=== PATIENT | female | born 1995 | race Two or more races ===

== ENCOUNTER 2025-04-06 20:20 | Emergency (ER) | payer MEDICAID, OTHER ==
[~2025-04-06] VITALS: Ht 162.6 cm; Wt 84.9 kg
[2025-04-06 20:26] VITALS: BP 125/79; PULSE 100; RESP 16; TEMP 98.8; O2SAT 98
[2025-04-06 22:32] LABS: Hematocrit 41.5 % (36.0-46.0); Hemoglobin 13.8 g/dL (12.2-16.2); Mean Corpuscular Hemoglobin 28.7 pg (28.0-32.0); Mean Corpuscular Volume 86.4 fL (80.0-100.0); Nucleated Red Blood Cells % 0.1 %
[2025-04-06 22:47] LABS: Alanine Aminotransferase 43 U/L (7-40); Albumin 4.5 g/dL (3.2-4.8); Alkaline Phosphatase 62 U/L (46-116); Anion Gap 8 (5-15); BUN/Creatinine Ratio 8.9 (10.0-20.0); Bilirubin, Total 0.3 mg/dL (0.2-1.0); Blood Urea Nitrogen 8 mg/dL (9-23); Calcium 9.8 mg/dL (8.7-10.4); Carbon Dioxide 27 mmol/L (20-31); Chloride 103 mmol/L (98-107); Glucose 100 mg/dL (74-106); Potassium 4.2 mmol/L (3.5-5.1); Sodium 138 mmol/L (136-145); Total Protein 7.9 g/dL (5.7-8.2)
--- NOTE | 2025-04-06 23:18 | ED.PDOC ---
DIALYSIS RN HPI Comments HPI: This is a 30 year-old female who presents to the ED with a chief complaint of vaginal spotting and minimal cramping as of today. Patient reports she found out she was yesterday with an at home test. Patient reports , current gestation period unspecified, LMP on 03/14/25. Patient has no further complaints at this time and otherwise denies dysuria, N/V/D, abdominal pain, abdominal distention, fever, or chills. Initial Vitals (Deferred) BP: HR: RR: O2: Temp: Past Medical History: None Past Surgical History: None Social History: Denies ETOH, smoking, and drug use. Medications: None Allergies: None HPI: Poor Historian. REVIEW OF SYSTEMS: CONSTITUTIONAL: Denies acute: fever, diaphoresis, chills, generalized weakness. HEAD: Denies acute: headache, photophobia Eyes: Denies acute: Double vision, vision loss, eye pain, eye discharge. EARS: Denies acute: tinnitus, hearing loss, ear discharge, ear pain, THROAT: Denies acute: sore throat, swelling, difficulty swallowing , pain with swallowing, change in voice. NECK: Denies acute: neck pain, neck swelling, stiff neck. HEART: Denies acute : chest pain, palpitations, LUNGS: Denies acute: SOB, wheezing, cough, hemoptysis ABDOMEN: Denies acute: abdominal pain, Nausea, Vomiting, diarrhea, melena , hematemesis, hematochezia SKIN: Denies acute: rash, redness, lesions, itchiness. EXTREMITIES: Denies acute: calf pain, numbness, tingling, weakness, denies pain in extremity. Denies acute: Low back pain. Neuro: Denies acute: focal neurological deficit, motor or sensory focal neurological deficit, tremors, seizure like activity, confusion, dizziness, change in mental status, loss of bowel or bladder function, cauda equina like symptoms. : Denies acute: hematuria, flank pain, increase in urinary frequency. PSYCH: Denies acute: hallucination, suicidal ideation, homicidal ideation. FEMALE: Denies acute: foul odor, unusual discharge. PHYSICAL EXAM: General: ----no----acute distress, awake and alert. Head: normocephalic, atraumatic. Neck: supple, trachea is midline, no swelling. Throat: Normal phonation. Eyes:, no erythema, no purulent discharge, no proptosis, no icterus. Heart: regular rate, regular rhythm, no significant murmur appreciated. Lungs: no apparent respiratory distress, Able to speak in full sentences. No wheezing, no rhonchi, no crackles. No stridors Clear to auscultation bilaterally. Abdomen: non tender to palpation, non distended, soft, no guarding, no rebound, + bowel sounds. Neuro: Awake, Alert, oriented to name, self, situation, follows commands GCS=15. Speech is normal. Skin: no petechia, no purpura, no cyanosis, non-pale, not jaundice. Lower extremities: --no - Pitting edema no deformity, no focal swelling, no calf TTP. Makes eye contact. moves all four extremities. Face: no apparent facial droop. Ambulating in the ED independently. ED COURSE: On April 14, 2025 at 12:55 p.m. hour: I was able to reach the patient on her phone number [phone]. 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 She said that they were able to see a sac. Please seek medical attention if anything changes. DISCLAIMER: This medical document was created using an electronic medical record system with voice recognition software and computerized dictation system. Although this document has been carefully reviewed, there might still be some phonetic and typographical errors. Occasional wrong-word or "sound-alike" substitutions may have occurred due to the inherent limitations of voice recognition software. These areas are purely typographical due to imperfections of the software programs and do not reflect any compromise in the patient's medical care. Please read the chart carefully and recognize, using context, where these substitutions have occurred. Chief Complaint: Vaginal Bleed Time Seen by MD: 23:06 Reviewed Notes: Medications, Allergies Allergies: Coded Allergies: UNOBTAINABLE (Unverified , 04/07/25) Home Meds Active Scripts Cephalexin Monohydrate (Cephalexin) 500 Mg Cap, 500 MG PO TID for 5 Days, #15 TAB Prov:ORA ALVAREZ DO 04/07/25 Information Source: Patient Mode of Arrival: Ambulatory Timing: Hours Severity: Moderate Onset Of Mass/Bleeding: Spontaneous History of: Current Associated Signs and Symptoms: Vaginal Bleeding, Cramping Past Medical History PAST MEDICAL HISTORY: Denies Surgical History: Denies all surgeries BEAD WIRE TAPER History: No Pertinent BEAD WIRE TAPER History 2 Para 1 Social History Smoker: Non-Smoker Alcohol: Denies ETOH Use Drugs: Denies Drug Use Lives In: Home Was a procedure done? Was a procedure done?: No Differential Diagnosis (BEAD WIRE TAPER) Vaginal Bleeding: - Complete, - Incomplete, - Inevitable, - Missed, - Threatened, Abruptio Placentae, Blood Loss Anemia, Cervicitis, Dysmenorrhea, Ectopic , Hormonal, Menorrhagia, Menometrorrhagia, Menstrual Bleeding, Myomatous Uterus, PID, Placenta Previa, Precipitous Hct, Trauma, UTI, Vaginitis, Other (Differential diagnosis includes but not limited to DU B, menorrhea, metromenorrhagia, neoplasm, coagulopathy,, trauma, miscarriage, placenta previa, placental abruption, ) Vaginal Discharge: , Vaginitis - Bacterial X-Ray, Labs, Meds, VS Vital Signs Date Time Temp Pulse Resp B/P (MAP) Pulse Ox O2 Delivery O2 Flow Rate FiO2 04/06/25 20:26 98.8 100 16 125/79 98 98.8 Lab Test 04/06/25 23:09 04/06/25 22:22 Range/Units Urine Color Colorless Yellow Urine Clarity Turbid H Clear Urine pH 6.0 5.0-9.0 Urine Specific [place] 1.022 1.001-1.035 Urine Protein Negative Negative Urine Ketones Negative Negative Urine Blood 3+ H Negative /uL Urine Nitrite Negative Negative Urine Bilirubin Negative Negative Urine Urobilinogen Normal Negative mg/dL Urine Leukocyte Esterase 3+ Negative /uL Urine RBC 64 0 - 4 /hpf Urine Microscopic WBC 215 H 0-5 /HPF Urine Squamous Epithelial Cells Few <5 /hpf Urine Bacteria Mod H None Seen /hpf Urine Mucus Few None Seen Urine Glucose Normal Normal mg/dL White Blood Count 12.5 H 4.4-10.8 10^3/uL Red Blood Count 4.80 4.0-5.20 10^6/uL Hemoglobin 13.8 12.2-16.2 g/dL Hematocrit 41.5 36.0-46.0 % Mean Corpuscular Volume 86.4 80.0-100.0 fL Mean Corpuscular Hemoglobin 28.7 28.0-32.0 pg Mean Corpuscular Hemoglobin Concent 33.2 32.0-36.0 g/dL Red Cell Distribution Width 12.9 11.8-14.3 % Platelet Count 371 140-450 10^3/uL Mean Platelet Volume 7.1 6.9-10.8 fL Neutrophils (%) (Auto) 67.1 37.0-80.0 % Lymphocytes (%) (Auto) 22.1 10.0-50.0 % Monocytes (%) (Auto) 9.1 0.0-12.0 % Eosinophils (%) (Auto) 0.9 0.0-7.0 % Basophils (%) (Auto) 0.8 0.0-2.0 % Neutrophils # (Auto) 8.4 1.6-8.6 10 ^3/uL Lymphocytes # (Auto) 2.8 0.4-5.4 10 ^3/uL Monocytes # (Auto) 1.1 0-1.3 10 ^3/uL Eosinophils # (Auto) 0.1 0-0.8 10 ^3/uL Basophils # (Auto) 0.1 0-0.2 10 ^3/uL Nucleated Red Blood Cells 0.1 % Sodium Level 138 136-145 mmol/L Potassium Level 4.2 3.5-5.1 mmol/L Chloride Level 103 98-107 mmol/L Carbon Dioxide Level 27 20-31 mmol/L Anion Gap 8 5-15 Blood Urea Nitrogen 8 L 9-23 mg/dL Creatinine 0.90 0.550-1.02 mg/dL Glomerular Filtration Rate Calc 87 >90 mL/min BUN/Creatinine Ratio 8.9 L 10.0-20.0 Serum Glucose 100 74-106 mg/dL Calcium Level 9.8 8.7-10.4 mg/dL Total Bilirubin 0.3 0.2-1.0 mg/dL Aspartate Amino Transferase (AST) 27 13-40 U/L Alanine Aminotransferase (ALT) 43 H 7-40 U/L Alkaline Phosphatase 62 46-116 U/L Total Protein 7.9 5.7-8.2 g/dL Albumin 4.5 3.2-4.8 g/dL Beta HCG, Quantitative 439.4 H 1.5-4.2 mIU/mL [facility] [id number] [facility] [address] Ph: [phone] DIAGNOSTIC IMAGING Diagnostic Imaging Report : [id number] Signed PATIENT: RAMON PARRA AACCT: [id number] UNIT: [id number] : 1995 LOC: ER ROOM / BED: / AGE / SEX: 30 / F ADM STATUS: REG ER SERVICE 13 ORDERING PHYSICIAN: ORA ALVAREZ DO PROCEDURE(s): OB4US - OB ULTRASOUND COMP LESS 14WKS REASON: vag bleed ORDER NUMBER(s): [id number], ACCESSION NUMBER(s): [id number] INDICATION: vag bleed TECHNIQUE: Multiple real-time grayscale transabdominal and transvaginal sonographic images along with color and duplex Doppler of the uterus and ovaries were obtained. COMPARISON: None FINDINGS: The uterus measures 7.4 x 5.3 x 3.1 cm. Myometrium is homogeneous. No intrauterine gestational sac or cavitary fluid. The endometrial stripe measures 14 mm. Nabothian cysts are present. Right ovary measures 4.7 x 2.1 x 5 cm with normal Doppler color flow. A complex thick-walled, septated mass with a small amount of low-level internal echoes is present measuring 2.3 x 1.5 x 1.9 cm. Left ovary measures 2.5 x 1.9 x 2.6 cm with normal Doppler color flow. Physiologic follicle. No visualized ascites. IMPRESSION: 1. No intrauterine gestational sac. 2. Complex right ovarian cyst concerning for ectopic , although without definitive features of gestational sac. Recommend gynecologic consultation, trending of quantitative hCG values, and follow-up ultrasound if necessary. 3. Moderate to large volume of mildly complex pelvic pelvic free fluid, also suspicious. I communicated the above findings by telephone with Dr. Alvarez at 12:25 a.m. [facility] on 04/07/2025, who demonstrated understanding. 0319: I attempted to contact the patient via home phone #[phone]. Patient did not answer and voice mailbox was full. I was unable to leave a message. Nursing staff called the patient multiple times, unable to find the patient in the lobby, triage area, or treatment. Images Reviewed?: Images reviewed and evaluated by me Time of 1ST Reevaluation: 23:40 Reevaluation 1ST: Unchanged Time of 2ND Reevaluation: 00:52 (The case was discussed with the OB Gyne team on-call team (HPI, physical exam, labs and diagnostic tests that were available at the time of disposition, ED course, treatment plan) on the phone. Lisa HULL. SHE REVIEWED THE ULTRASOUND AND STATES TO DISCHARGE THE PATIENT HOME AND RETURNED 24 HOURS TO REPEAT BOTH PELVIC ULTRASOUND AND BETA-HCG LEVELS. The sheep farm manager doctors and does not believe that this is ectopic at this time.) Time of 3RD Reevaluation: 03:41 (Patient eloped without taking her discharge instructions. I attempted to call her few times and her voicemail is full. I notified the charge nurse Мария. She will continue following up to reach out to the patient.) Patient Education/Counseling: Diagnosis, Treatment Family Education/Counseling: No Family Present Medical Screening: No EMC Exist At This Time Comments MDM: patient presented with the above HPI.-I saw putting in pregnan cy-----workup was initiated. patient was found with the above mentioned diagnosis. the following medications were ordered: please refer to order lists of meds and tests obtained by myself Dr. Alvarez. Patient ED course and VS have been stabilized. Patient has been reassessed in the ED and remained in a stable condition. Patient has been observed in the ED adequate length of time to insure improvement/stability. Escalation of care considered: Consideration of escalation to observation or admission OB Gyne was consulted. Patient was DISCHARGED home in a stable condition. All the reports of any imaging studies that were ordered by myself were reviewed by myself. Departure 1 Departure Time of Disposition: 23:27 Impression: Primary Impression: Vaginal bleeding during Additional Impressions: Spotting in early UTI in Qualified Codes: O23.41 - Unspecified infection of urinary tract in , first trimester Disposition: HOME / SELF CARE / HOMELESS Condition: Stable Additional Instructions: Additional instructions: Please read all instructions provided in this packet carefully. You MUST follow-up with your primary care/family doctor in 1 to 2 days. If you are unable to see your primary care/family doctor, please return to our emergency room for re-assessment and re-evaluation in 1 to 2 days. Return to the emergency room here in our facility or to the nearest ER [facility] if your symptoms change or worsen. CONSULTATIONS: you MUST Follow-up for consultation as soon as possible with: ---OB Gyne doctor [facility]. You MUST call the consultants office yourself to make an appointment. You may need to arrange that through your insurance and/or your primary/family doctor. If you are unable to see the senior business consultant in 1 to 2 days, you must return to our emergency room (or any other ER of your choice) for re-assessment and re- evaluation. Adequate fluid hydration. Although you have been discharged from the Emergency Department, this does not mean that you have a "clean bill of health". No definitive diagnosis for your symptoms has been made today. It is possible that you are in the process of developing a serious illness. This is why you must return to the ED without fail if any new or worsening symptoms develop. Absolute pelvic rest. YOU MUST RETURN IN 24 HOURS TO REPEAT BOTH PELVIC ULTRASOUND AND BETA-HCG LEVELS!!! SPECIFICALLY FRIDAY NIGHT!! Below is a copy of your radiological report for follow up: [place] [id number] Ph: [phone] DIAGNOSTIC IMAGING Diagnostic Imaging Report : [id number] Signed PATIENT: RAMON PARRA ACCT: [id number] UNIT: [id number] : 1995 LOC: ER ROOM / BED: / AGE / SEX: 30 / F ADM STATUS: REG ER SERVICE 2214 ORDERING PHYSICIAN: ORA ALVAREZ DO PROCEDURE(s): OB4US - OB ULTRASOUND COMP LESS 14WKS REASON: vag bleed ORDER NUMBER(s): [id number], ACCESSION NUMBER(s): [id number] INDICATION: vag bleed TECHNIQUE: Multiple real-time grayscale transabdominal and transvaginal sonographic images along with color and duplex Doppler of the uterus and ovaries were obtained. COMPARISON: None FINDINGS: The uterus measures 7.4 x 5.3 x 3.1 cm. Myometrium is homogeneous. No intrauterine gestational sac or cavitary fluid. The endometrial stripe measures 14 mm. Nabothian cysts are present. Right ovary measures 4.7 x 2.1 x 5 cm with normal Doppler color flow. A complex thick-walled, septated mass with a small amount of low-level internal echoes is present measuring 2.3 x 1.5 x 1.9 cm. Left ovary measures 2.5 x 1.9 x 2.6 cm with normal Doppler color flow. Physiologic follicle. No visualized ascites. IMPRESSION: 1. No intrauterine gestational sac. 2. Complex right ovarian cyst concerning for ectopic , although without definitive features of gestational sac. Recommend gynecologic consultation, trending of quantitative hCG values, and follow-up ultrasound if necessary. 3. Moderate to large volume of mildly complex pelvic pelvic free fluid, also suspicious. I communicated the above findings by telephone with Dr. Alvarez at 12:25 a.m. [facility] on 04/07/2025, who demonstrated understanding. e-Prescriptions Cephalexin Monohydrate (Cephalexin) 500 Mg Cap 500 MG PO TID for 5 Days, #15 TAB Prov: ORA ALVAREZ DO 04/07/25 Discharged With: Self Critical Care Note Critical Care Time?: Yes (35 min-critical care time only) I personally scribed for ORA ALVAREZ DO ([email or web address]) on 04/06/25 at 23:18. Electronically submitted by Lisa Alex ([facility]). I personally scribed for ORA ALVAREZ DO ([email or web address]) on 04/07/25 at 00:45. Electronically submitted by Lisa Alex ([facility]). I personally scribed for ORA ALVAREZ DO ([facility]) on 04/07/25 at 00:49. Electronically submitted by Lisa Alex ([facility]). I personally scribed for ORA ALVAREZ DO ([facility]) on 04/07/25 at 03:21. Electronically submitted by Lisa Alex ([facility]). I personally scribed for ORA ALVAREZ DO ([email or web address]) on 04/07/25 at 03:22. Electronically submitted by Lisa Alex ([facility]). ORA ALVAREZ DO Apr 06, 2025 23:18
[2025-04-07 00:03] LABS: Urine Protein, UAD Negative (Negative)
--- NOTE | 2025-04-07 00:27 | DVH ---
INDICATION: vag bleed TECHNIQUE: Multiple real-time grayscale transabdominal and transvaginal sonographic images along with color and duplex Doppler of the uterus and ovaries were obtained. COMPARISON: None FINDINGS: The uterus measures 7.4 x 5.3 x 3.1 cm. Myometrium is homogeneous. No intrauterine gestational sac or cavitary fluid. The endometrial stripe measures 14 mm. Nabothian c ysts are present. Right ovary measures 4.7 x 2.1 x 5 cm with normal Doppler color flow. A complex thick-walled, septate d mass with a small amount of low-level internal echoes is present measuring 2.3 x 1.5 x 1.9 cm. Left ovary measures 2.5 x 1.9 x 2.6 cm with normal Doppler color flow. Physiologic follicle. No visualized ascites. IMPRESSION: 1. No intrauterine gestational sac. 2. Complex right ovarian cyst concerning for ectopic , although without definitive features of gestational sac. Recommend gynecologic consultation, trending of quantitative hCG values, and foll ow-up ultrasound if necessary. 3. Moderate to large volume of mildly complex pelvic pelvic free fluid, also suspicious. I communicated the above findings by telephone with Dr. Oneal at 12:25 a.m. [facility] on 04/07/2025, who de monstrated understanding.
[2025-04-07] MEDS ORDERED: CEPH500C PO (01:01)
== END 2025-04-07 01:02 | disposition left against medical advice (07) ==
LOC: ER 20:20
DX: O26.851 Spotting complicating pregnancy, first trimester (principal); O23.40 Unspecified infection of urinary tract in pregnancy, unspecified trimester; O20.0 Threatened abortion; N39.0 Urinary tract infection, site not specified; R10.2 Pelvic and perineal pain; Z3A.00 Weeks of gestation of pregnancy not specified
CPT/HCPCS: 36415; 76801; 76817; 80053; 81001; 84702; 85025; 86850; 86900; 86901